=== PATIENT | male | born 1995 | race African-American/Black ===

== ENCOUNTER 2018-09-11 15:59 | Emergency (ER) | payer SELFPAY ==
[~2018-09-11] VITALS: Ht 188 cm; Wt 98.0 kg
[2018-09-11 19:13] VITALS: BP 140/77
== END 2018-09-11 19:49 | disposition left against medical advice (07) ==
LOC: ER 15:59
DX: Z53.21 Procedure and treatment not carried out due to patient leaving prior to being seen by health care provider (principal)